=== PATIENT | male | born 1955 | race Caucasian/White ===

== ENCOUNTER 2021-10-05 20:17 | Inpatient (IN) ==
[2021-10-05] MEDS ORDERED: Ondansetron 4 MG/2 ML VIAL IVP PRN (21:57)
[2021-10-05] MEDS ORDERED: Melatonin 3 MG TABLET PO PRN (21:57)
[2021-10-05] MEDS ORDERED: *HR* Promethazine 25 MG/ML VIAL IM PRN (21:57)
[2021-10-05] MEDS ORDERED: Acetaminophen 325 MG TABLET PO PRN (21:57)
[2021-10-05] MEDS ORDERED: Naloxone 0.4 MG/ML INJ IVP PRN (21:57)
[2021-10-05] MEDS: Ringers Solution, Lactated 1,000 ML IVC SCH (22:32)
[2021-10-05] MEDS ORDERED: Vancomycin 1,750 MG/517.5 ML IV.SOLN IVPB ONE (23:00)
[2021-10-06] MEDS: Cefepime HCl 2,000 MG in 0.9 % Sodium Chloride 10 ML IVP SCH ×2 (00:49→09:08)
[2021-10-06 02:41] LABS: Basophils % 0.2 %; Eosinophils # 0.1 K/mcL (0.0-0.6); Eosinophils % 0.4 %; Hemoglobin 12.3 g/dL (12.9-16.9); Immature Granulocytes % 0.5 % (0-4); Lymphocytes # 0.5 K/mcL (0.6-4.6); Lymphocytes % 4.1 %; Mean Corpuscular HGB Conc 33.2 g/dL (31.6-35.5); Mean Corpuscular Hemoglobin 29.8 pg (28.0-33.3); Mean Corpuscular Volume 89.6 fL (83.0-100.0); Monocytes # 0.8 K/mcL (0.0-1.3); Monocytes % 6.8 %; Neutrophils # 10.8 K/mcL (1.6-8.9); Platelet Count 142 K/mcL (140-400); Red Blood Count 4.13 M/mcL (4.19-5.50); Red Cell Distribution Width 12.8 % (11.5-14.5); White Blood Count 12.3 K/mcL (4.3-11.1)
[2021-10-06 02:48] LABS: INR 1.4; Prothrombin Time 15.2 Seconds (9.4-12.1)
[2021-10-06 03:01] LABS: BUN/Creatinine Ratio 16 (6-26); Blood Urea Nitrogen 20 mg/dL (8-23); Calcium 8.2 mg/dL (8.6-10.3); Carbon Dioxide 24 mEq/L (23-29); Chloride 105 mEq/L (98-107); Chol/HDL Ratio 3.5 (0-4.9); Cholesterol 63 mg/dL (< 200); Glucose 110 mg/dL (70-105); HDL Cholesterol 18 mg/dL (40-59); LDL Cholesterol,Calculated 29 mg/dL (< 100); Magnesium 2.1 mg/dL (1.6-2.6); Osmolality,Calculated 285 (280-300); Phosphorous 4.1 mg/dL (2.7-4.5); Potassium 4.1 mEq/L (3.5-5.1); Sodium 136 mEq/L (136-145); Triglycerides 80 mg/dL (< 150); eGFR For African Americans > 60 (> 60); eGFR For Non-African Americans 57 (> 60)
[2021-10-06] MEDS: *HR* Enoxaparin 40 MG/0.4 ML SYRINGE SQ SCH (05:59)
[2021-10-06] MEDS: Aspirin Enteric Coated 325 MG Tablet PO SCH (09:08)
[2021-10-06] MEDS: Ringers Solution, Lactated 1,000 ML IVC SCH (09:09)
[2021-10-06] MEDS ORDERED: traZODone 50 MG TABLET PO PRN (14:42)
[2021-10-06] MEDS ORDERED: DOCUSATE SODIUM 283 MG/5 ML RC PRN (14:42)
[2021-10-06] MEDS: Gabapentin 300 MG CAPSULE PO SCH ×2 (14:58→23:35)
[2021-10-06] MEDS: Piperacillin/Tazobactam 3.375 GM in 0.9 % Sodium Chloride Mini Bag 100 ML IVPB SCH ×2 (15:01→23:36)
[2021-10-06] MEDS ORDERED: Vancomycin 1,750 MG/517.5 ML IV.SOLN IVPB SCH (23:00)
[2021-10-07 02:19] LABS: Basophils % 0.3 %; Eosinophils # 0.2 K/mcL (0.0-0.6); Eosinophils % 2.4 %; Hematocrit 34.6 % (37.5-50.1); Hemoglobin 11.3 g/dL (12.9-16.9); Immature Granulocytes % 0.8 % (0-4); Lymphocytes # 0.5 K/mcL (0.6-4.6); Lymphocytes % 6.7 %; Mean Corpuscular HGB Conc 32.7 g/dL (31.6-35.5); Mean Corpuscular Hemoglobin 29.4 pg (28.0-33.3); Mean Corpuscular Volume 90.1 fL (83.0-100.0); Mean Platelet Volume 9.5 fL (9.4-12.4); Monocytes # 0.8 K/mcL (0.0-1.3); Monocytes % 10.7 %; Neutrophils # 6.1 K/mcL (1.6-8.9); Platelet Count 116 K/mcL (140-400); Red Blood Count 3.84 M/mcL (4.19-5.50); Segmented Neutrophils % 79.1 %; White Blood Count 7.7 K/mcL (4.3-11.1)
[2021-10-07 02:42] LABS: BUN/Creatinine Ratio 14 (6-26); Blood Urea Nitrogen 18 mg/dL (8-23); Calcium 7.8 mg/dL (8.6-10.3); Carbon Dioxide 23 mEq/L (23-29); Chloride 106 mEq/L (98-107); Glucose 122 mg/dL (70-105); Magnesium 1.9 mg/dL (1.6-2.6); Osmolality,Calculated 283 (280-300); Phosphorous 2.7 mg/dL (2.7-4.5); Potassium 4.1 mEq/L (3.5-5.1); Sodium 135 mEq/L (136-145); eGFR For African Americans > 60 (> 60); eGFR For Non-African Americans 57 (> 60)
[2021-10-07] MEDS: Gabapentin 300 MG CAPSULE PO SCH ×3 (06:01→21:10)
[2021-10-07] MEDS: *HR* Enoxaparin 40 MG/0.4 ML SYRINGE SQ SCH (06:02)
[2021-10-07] MEDS: Piperacillin/Tazobactam 3.375 GM in 0.9 % Sodium Chloride Mini Bag 100 ML IVPB SCH ×2 (08:47→16:43)
[2021-10-07] MEDS: Aspirin Enteric Coated 325 MG Tablet PO SCH (08:48)
[2021-10-07] MEDS ORDERED: *HR* HYDROcodone/Acet 5/325 mg TABLET PO PRN (11:17)
[2021-10-08] MEDS: Piperacillin/Tazobactam 3.375 GM in 0.9 % Sodium Chloride Mini Bag 100 ML IVPB SCH
[2021-10-08] MEDS: Gabapentin 300 MG CAPSULE PO SCH (06:08)
[2021-10-08] MEDS: *HR* Enoxaparin 40 MG/0.4 ML SYRINGE SQ SCH (06:08)
[2021-10-08] MEDS ORDERED: levoFLOXacin 750 MG TABLET PO SCH (09:00)
[2021-10-08 11:07] VITALS: BP 108/69; PULSE 74; TEMP 97.5; O2SAT 97
== END 2021-10-08 13:37 | disposition home or self-care (01) | DRG 698 ==
LOC: 2NNU → SUATTDRO 21:42 → 2ANU 10-06 18:12
PROVIDERS: ADMIT Internal Medicine; ATTEND Internal Medicine